=== PATIENT | female | born 1995 | race Caucasian/White ===

== ENCOUNTER 2018-03-16 09:26 | Emergency (ER) | payer BC, OTHER ==
[~2018-03-16] VITALS: Ht 167.6 cm; Wt 91.2 kg
--- NOTE | ~2018-03-16 | EKG ---
[address] [address] ELECTROCARDIOGRAM REPORT Name: ALICIA MOTLEY Room [facility]: [facility] PARK[facility]re[facility]re#: [id number] Admission: 03/16/18 Attend Phys: Discharge: 03/16/18 Date of : [birth year] Report #: [id number] THIS REPORT FOR: //name// [facility] ED Test Date: 2018-03-16 Test Time: 10:02:27 Pat Name: ALICIA MOTLEY Department: Room: Gender: F Director Of Assisted Living: DELICIA : 1995 Requested By: Pako León Order Number: [id number] MD: Alvaro Aviles Measurements Intervals [place] Rate: 60 P: 14 WA: 132 QRS: 50 QRSD: 88 T: 27 QT: 392 QTc: 392 Interpretive Statements Sinus rhythm No previous ECG available for comparison Electronically Signed On 03-16-2018 13:56:00 CDT by Alvaro Aviles [email or web address] <ELECTRONICALLY SIGNED> By: Alvaro Aviles MD 03/16/18 1356 1002 Chika Aviles MD /RACHEAL
[2018-03-16 10:01] LABS: ABSOLUTE NEUTROPHILS 4.4 thou/uL (1.4-8.2); BASOPHILS 0.7 % (0.0-2.0); EOSINOPHILS 1.7 % (0.0-3.0); HEMOGLOBIN 13.8 gm/dL (12.0-15.0); LYMPHOCYTES 35.4 % (24.0-44.0); MCH 29.2 pg (26.0-34.0); MCHC 33.7 g/dL (28.0-37.0); MCV 86.6 fL (80.0-100.0); MONOCYTES 6.4 % (1.0-8.0); PLATELET COUNT 252 thou/uL (150-400); POLYS 55.8 % (36.0-66.0); RBC 4.73 mil/uL (4.20-5.00); RDW 13.2 % (10.5-14.5); WBC 7.9 thou/uL (4.0-11.0)
[2018-03-16 10:09] LABS: ANION GAP 6 mmol/L (7-16); BUN 14 mg/dL (7-18); CALCIUM 9.5 mg/dL (8.5-10.1); CHLORIDE 105 mmol/L (98-107); CO2 29 mmol/L (21-32); CREATININE 0.7 mg/dL (0.6-1.0); GLUCOSE 86 mg/dL (74-106); SODIUM 140 mmol/L (136-145)
[2018-03-16 10:17] LABS: ALBUMIN 3.9 g/dL (3.4-5.0); SGOT 20 U/L (15-37); SGPT 25 U/L (30-65); TOTAL BILIRUBIN 0.4 mg/dL (<0.1-1.0); TOTAL PROTEIN 7.9 g/dL (6.4-8.2); TROPONIN-I < 0.04 ng/mL (<0.06)
[2018-03-16 10:18] LABS: URINE BILIRUBIN NEGATIVE (Negative); URINE BLOOD NEGATIVE (Negative); URINE CLARITY CLEAR; URINE COLOR YELLOW; URINE GLUCOSE-RANDOM* NEGATIVE (Negative); URINE KETONES NEGATIVE (Negative); URINE LEUKOCYTES-REFLEX NEGATIVE (Negative); URINE NITRITE-REFLEX NEGATIVE (Negative); URINE PROTEIN (DIPSTICK) NEGATIVE (Negative); URINE SPECIFIC GRAVITY 1.025 (1.005-1.035); URINE UROBILINOGEN 0.2 E.U./dl (0.2-1.0)
[2018-03-16 11:15] VITALS: BP 111/67
== END 2018-03-16 11:16 | disposition home or self-care (01) ==
LOC: ER 09:26
PROVIDERS: Nurse Practitioner
DX: F32.9 Major depressive disorder, single episode, unspecified (principal); F41.9 Anxiety disorder, unspecified

== ENCOUNTER 2019-01-16 20:45 | Emergency (ER) | payer BC, OTHER ==
[~2019-01-16] VITALS: Ht 170.2 cm; Wt 81.7 kg
[2019-01-16] MEDS ORDERED: VENLAFAXINE HCL75 M2 PO (20:51)
[2019-01-16] MEDS ORDERED: TESSALON PERLE100 MG PO ×2 (21:41→21:51)
[2019-01-16] MEDS ORDERED: PREDNISONE 20 M20 MG PO (21:41)
[2019-01-16] MEDS ORDERED: DOXYCYCLINE 10100 MG PO (21:51)
[2019-01-16 22:05] VITALS: BP 104/72
== END 2019-01-16 22:09 | disposition home or self-care (01) ==
LOC: ER 20:45
DX: J18.9 Pneumonia, unspecified organism (principal); Z98.84 Bariatric surgery status